=== PATIENT | female | born 1950 | race African-American/Black ===

== ENCOUNTER 2020-04-23 11:24 | Observation (INO) ==
[2020-04-23] MEDS ORDERED: SODIUM CHLORIDE 0.9% 1,000 ML IV STA (14:29)
[2020-04-23 15:27] LABS: Basophils % 0.2 % (0.0-0.8); Hemoglobin 12.1 GM/DL (12.0-16.0); Immature Granulocytes % 0.6 %; Immature Granulocytes Absolute 0.04 #; Lymphocytes # 0.6 10*3/uL (1.4-4.0); Mean Corpuscular HGB Conc 33.6 GM/DL (32-36); Mean Corpuscular Volume 86.1 FL (87-102); Mean Platelet Volume 9.9 FL (9.6-12.0); Monocytes % 5.2 % (1.7-12.7); Platelet Count 316 T/CUMM (130-400); Red Blood Count 4.18 MC/CUMM (3.8-5.5); White Blood Count 6.3 T/CUMM (4-12)
[2020-04-23 15:37] LABS: INR 1.1; PT Patient Result 11.5 SECS (9.8-11.9)
[2020-04-23 15:44] LABS: Alanine Aminotransferase 30 U/L (13-56); Albumin 3.3 G/DL (3.4-5.0); Alkaline Phosphatase 118 U/L (45-117); Aspartate Amino Transferase 31 U/L (0-37); Bilirubin,Total < 0.39 MG/DL (0.2-1.0); Blood Urea Nitrogen 11 MG/DL (7-18); Calcium 8.9 MG/DL (8.5-10.1); Estimated Glom Filtration Rate 112 ML/MIN; Ferritin 216.7 ng/ml (8-252); Glucose 190 MG/DL (74-106); Osmolality,Calculated 271.2 MOS/KG (273-304); Total Protein 7.5 G/DL (6.4-8.3)
[2020-04-23] MEDS ORDERED: DEXAMETHASONE 4 MG/1 ML VIAL IV STA (16:04)
[2020-04-23 16:14] LABS: Eosinophils 1 % (0-10); Lymphocytes 3 % (20-55); Segmented Neutrophils 89 % (50-85); Total Cells Counted 100
[2020-04-23 16:16] LABS: Platelet Estimate Adequate
[2020-04-23] MEDS ORDERED: ONDANSETRON 4 MG/2 ML VIAL IV PRN (16:30)
[2020-04-23] MEDS ORDERED: DEXTROSE 50% 25 GM/50 ML VIAL IV PRN (16:30)
[2020-04-23] MEDS ORDERED: GLUCAGON 1 MG VIAL IM PRN (16:30)
[2020-04-23] MEDS ORDERED: ACETAMINOPHEN 325 MG TABLET PO PRN (16:30)
[2020-04-23] MEDS ORDERED: AZITHROMYCIN 250 MG TABLET PO STA (16:56)
[2020-04-23] MEDS: ENOXAPARIN 100 MG/ML SYRINGE SUBCUT SCH (18:52)
[2020-04-23] MEDS: DOXYCYCLINE HYCLATE 100 MG CAPSULE PO SCH (21:00)
[2020-04-24 03:43] LABS: Hematocrit 35.8 VOL% (35.7-47.0); Hemoglobin 11.8 GM/DL (12.0-16.0); Immature Granulocytes % 0.7 %; Immature Granulocytes Absolute 0.04 #; Lymphocytes # 0.9 10*3/uL (1.4-4.0); Mean Corpuscular Volume 86.5 FL (87-102); Monocytes % 4.9 % (1.7-12.7); Neutrophils % 79.4 % (38.7-73.9); Platelet Count 325 T/CUMM (130-400); Red Blood Count 4.14 MC/CUMM (3.8-5.5)
[2020-04-24 04:04] LABS: Osmolality,Calculated 273.1 MOS/KG (273-304)
[2020-04-24 04:24] LABS: Ferritin 225.5 ng/ml (8-252)
[2020-04-24 04:29] LABS: Band Neutrophils 1 % (0-10); Hypochromasia 1+; Lymphocytes 13 % (20-55); Microcytosis 1+; Ovalocytes Slight; Platelet Estimate Adequate; Segmented Neutrophils 80 % (50-85); Total Cells Counted 100
[2020-04-24] MEDS: AZITHROMYCIN 250 MG TABLET PO SCH (08:33)
[2020-04-24] MEDS: DOXYCYCLINE HYCLATE 100 MG CAPSULE PO SCH ×2 (08:37→21:21)
[2020-04-24] MEDS ORDERED: DEXAMETHASONE 4 MG/1 ML VIAL IV SCH (09:00)
[2020-04-24 09:26] VITALS: BP 150/77
[2020-04-24] MEDS ORDERED: CETIRIZINE 10 MG TABLET PO PRN (12:34)
[2020-04-24] MEDS: ENOXAPARIN 100 MG/ML SYRINGE SUBCUT SCH (17:45)
[2020-04-24] MEDS: ZINC SULFATE 220 MG CAPSULE PO SCH (21:22)
[2020-04-24] MEDS: ASCORBIC ACID 500 MG TABLET PO SCH (21:22)
[2020-04-25 03:22] LABS: Hematocrit 34.9 VOL% (35.7-47.0); Hemoglobin 11.9 GM/DL (12.0-16.0); Immature Granulocytes % 0.7 %; Immature Granulocytes Absolute 0.05 #; Lymphocytes # 1.1 10*3/uL (1.4-4.0); Lymphocytes % 15.1 % (21.3-54.2); Mean Corpuscular HGB Conc 34.1 GM/DL (32-36); Mean Platelet Volume 9.8 FL (9.6-12.0); Monocytes % 7.3 % (1.7-12.7); Neutrophils % 76.9 % (38.7-73.9); Platelet Count 370 T/CUMM (130-400); Red Blood Count 4.06 MC/CUMM (3.8-5.5); Red Cell Distribution Width 14.6 % (9.3-17.3); White Blood Count 7.4 T/CUMM (4-12)
[2020-04-25 03:44] LABS: Ferritin 215.7 ng/ml (8-252)
[2020-04-25 03:46] LABS: Hypochromasia 1+; Ovalocytes 1+; Platelet Estimate Normal
[2020-04-25 03:53] LABS: Calcium 8.3 MG/DL (8.5-10.1); Osmolality,Calculated 273.1 MOS/KG (273-304)
[2020-04-25] MEDS: ASCORBIC ACID 500 MG TABLET PO SCH (08:54)
[2020-04-25] MEDS: DOXYCYCLINE HYCLATE 100 MG CAPSULE PO SCH (08:55)
[2020-04-25] MEDS: AZITHROMYCIN 250 MG TABLET PO SCH (08:55)
[2020-04-25] MEDS: ZINC SULFATE 220 MG CAPSULE PO SCH (08:55)
[2020-04-25] MEDS ORDERED: hydroCHLOROthiazide 25 MG TABLET PO SCH (09:00)
[2020-04-25] MEDS ORDERED: DULoxetine 30 MG CAPSULE PO SCH (09:00)
[2020-04-25] MEDS ORDERED: ATORVASTATIN 80 MG TABLET PO SCH (09:00)
[2020-04-25] MEDS ORDERED: FUROSEMIDE 40 MG TABLET PO SCH (09:00)
[2020-04-25] MEDS ORDERED: DEXAMETHASONE 4 MG TABLET PO SCH (09:00)
[2020-04-25] MEDS ORDERED: PANTOPRAZOLE 40 MG TABLET PO SCH (09:00)
[2020-04-25] MEDS ORDERED: ROFLUMILAST 500 MCG TABLET PO SCH (09:00)
[2020-04-25] MEDS ORDERED: MONTELUKAST 10 MG TABLET PO SCH (09:00)
[2020-04-25] MEDS ORDERED: LOSARTAN 50 MG TABLET PO SCH (09:00)
[2020-04-25] MEDS ORDERED: EZETIMIBE 10 MG TABLET PO SCH (09:00)
[2020-04-25] MEDS ORDERED: POTASSIUM CHLORIDE 20 MEQ TABLET PO SCH (09:00)
[2020-04-30] MEDS ORDERED: INFLUENZA VIRUS VACCINE 0.5 ML SYRINGE IM ONE (09:00)
== END 2020-04-25 13:50 | disposition home or self-care (01) ==
LOC: N.ED 11:24 → N.EDINP 11:24 → N.CC 04-24 02:26
PROVIDERS: ADMIT Hospitalist; ATTEND Hospitalist